=== PATIENT | male | born 1980 | race African-American/Black ===

== ENCOUNTER 2023-12-16 23:22 | Emergency (ER) | payer SELFPAY ==
[2023-12-16 23:22] VITALS: BP 115/67; PULSE 80; RESP 18; TEMP 36.5; O2SAT 98
[2023-12-16 23:29] VITALS: BP 115/67; PULSE 74; RESP 12; TEMP 36.5; O2SAT 100; O2SAT 95
--- NOTE | 2023-12-16 23:50 | ED.GENADULT ---
HPI - General Adult General Chief complaint: Extremity Injury, Upper Stated complaint: left shoulder pain Time Seen by Provider: 12/16/23 23:34 History of Present Illness HPI narrative: This is a 43-year-old male presenting ED with left shoulder and chest pain. Patient was working on his car and holding up his starter with his left hand while trying to fix his vehicle. Since then he has been having pain in his left pectoral. It is worse with palpation and movement. Patient has been treating it with Motrin with some relief. Patient admits to drinking several beers prior to arrival. Related Data Allergies Allergy/AdvReac Type Severity Reaction Status Date / Time No Known Allergies Allergy Verified 12/16/23 23:31 Exam Narrative: APPEARANCE: No apparent distress. Head: atraumatic. EYES: EOMI, NOSE: Atraumatic NECK: Trachea midline RESPIRATORY: No increased rate of breathing CARDIOVASCULAR: RRR, ABDOMINAL: Non-distended MUSCULOSKELETAl: Focal exam of the left upper extremity revealed tenderness over the left pectoral and deltoid. Pulses intact. Shift Supervisor Melting strength thumb and pinky opposition and wrist extension intact. Cap refill less than 2 seconds. NEURO: Alert. Moving 4/4 extremities SKIN:: Warm, dry. Normal color PSYCHIATRIC: Normal affect Course Vital Signs Vital signs: Vital Signs Temperature 97.7 F 12/16/23 23:22 Pulse Rate 80 12/16/23 23:22 Respiratory Rate 18 12/16/23 23:22 Blood Pressure 115/67 12/16/23 23:22 Pulse Oximetry 98 12/16/23 23:22 Oxygen Delivery Room Air 12/16/23 23:22 Temperature 97.7 F 12/16/23 23:29 Pulse Rate 74 12/16/23 23:29 Respiratory Rate 12 12/16/23 23:29 Blood Pressure 115/67 12/16/23 23:29 Pulse Oximetry 95 12/16/23 23:29 Oxygen Delivery Room Air 12/16/23 23:29 Medical Decision Making [facility] Narrative Medical decision making narrative: -Course: 43-year-old male presenting with left chest wall and shoulder pain after trying to hold a started on his car up with 1 handed. Patient be treated with Motrin Tylenol Robaxin. Discharged. 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 -Interventions: -Shared decision making / Disposition: -RX Vital Signs Vital Signs: Vital Signs Temperature 97.7 F 12/16/23 23:22 Pulse Rate 80 12/16/23 23:22 Respiratory Rate 18 12/16/23 23:22 Blood Pressure 115/67 12/16/23 23:22 Pulse Oximetry 98 12/16/23 23:22 Oxygen Delivery Room Air 12/16/23 23:22 Temperature 97.7 F 12/16/23 23:29 Pulse Rate 74 12/16/23 23:29 Respiratory Rate 12 12/16/23 23:29 Blood Pressure 115/67 12/16/23 23:29 Pulse Oximetry 95 12/16/23 23:29 Oxygen Delivery Room Air 12/16/23 23:29 Discharge Plan Discharge Clinical Impression: Pectoralis muscle strain, Strain of deltoid muscle Patient Disposition: Home, Self-Care Condition: Stable Instructions: Antibiotic Form, Musculoskeletal Pain (ED) Additional Instructions: Take Motrin Tylenol Robaxin for pain control. Follow-up your primary care physician. Please drink responsibly. Prescriptions: New ibuprofen 800 mg tablet 800 mg PO TID PRN (Reason: pain) 7 Days Qty: 21 0RF acetaminophen 500 mg tablet 1,000 mg PO TID PRN (Reason: jm) 7 Days Qty: 42 0RF methocarbamol 750 mg tablet 1,500 mg PO TID Qty: 42 0RF
[2023-12-16] MEDS: IBUPROFEN 400 MG TABLET 800 MG PO (23:57)
[2023-12-16] MEDS: methocarbamoL 750 MG TABLET PO (23:57)
[2023-12-16] MEDS: ACETAMINOPHEN 500 MG TABLET 1000 MG PO (23:57)
== END 2023-12-17 02:00 | disposition home or self-care (01) ==
LOC: ANHED 12-17 00:26
PROVIDERS: Emergency Provider Emergency Medicine
DX: S46.812A Strain of other muscles, fascia and tendons at shoulder and upper arm level, left arm, initial encounter (principal); S29.011A Strain of muscle and tendon of front wall of thorax, initial encounter; X50.0XXA Overexertion from strenuous movement or load, initial encounter
CPT/HCPCS: 99283; A9270